=== PATIENT | male | born 1985 | race African-American/Black ===

== ENCOUNTER 2016-10-09 21:23 | Emergency (ER) | payer OTHER ==
[~2016-10-09] VITALS: Ht 175.3 cm; Wt 96.9 kg
[2016-10-09 21:26] VITALS: TEMP 36.7; Ht 175.3 cm; Wt 96.9 kg
[2016-10-09] MEDS ORDERED: XYLOCAINE 1%/SOD BICARB 20 ML VIAL INFIL ONE (21:39)
[2016-10-09 23:03] VITALS: BP 164/99; PULSE 72; O2SAT 100
--- NOTE | 2016-10-10 22:35 | EMERGENCY ROOM VISIT NOTE ---
ED Visit Note First contact with patient: 22:11 CHIEF COMPLAINT: Eyebrow laceration HISTORY OF PRESENT ILLNESS: This 31-year-old male patient presents to the emergency department after cutting the right eyebrow while playing basketball about one hour ago. The patient is under the care of [facility] and arrives accompanied by corrections officers. The bleeding has stopped. Denies weakness or numbness of the face. The patient rates the pain as dull and 5/10. The patient denies any other injuries. The patient's Tetanus shot is reportedly up to date. REVIEW OF SYSTEMS: A 6 system review of systems was completed with positives and pertinent negatives listed in the HPI. ALLERGIES: No known allergies MEDICATIONS: No chronic medication PMH: Otherwise healthy SOCIAL HISTORY: Currently incarcerated PHYSICAL EXAM: Vital Signs: Reviewed Nurse's notes, vital signs stable. GENERAL : Black male, in no acute distress, well-developed, well-nourished. SKIN: There is a curvilinear 3.0 cm long laceration on the mid aspect of the right eyebrow. The edges gape apart with traction. There is no foreign material in the wound and it looks clean. There is no significant bleeding. No deep structures such as tendons, bones, or significant blood vessels are seen in the base of the wound. Normal strength and movement of the eyebrow, face, and cheeks. No dental injuries.. Capillary refill less than 2 seconds. Normal sensation to light and sharp touch. EMERGENCY DEPARTMENT COURSE: I examined the patient. Verbal consent was obtained to perform the procedure. Using sterile technique the wound was cleansed with Betadine. The area was sterilely draped. 4 ml of 1% buffered lidocaine was used to anesthetize the laceration on the right eyebrow. Once the patient was anesthetized, the wound was copiously irrigated under pressure with sterile saline. The wound was explored and was as described above. The laceration was repaired using 6 simple interrupted 6-0 nylon sutures with the wound edges being well approximated. The patient tolerated the procedure well. Hemostasis was achieved. The area was cleaned with sterile saline and dressed with bacitracin ointment and bandage. The patient was discharged under the care of corrections officers with discharge instructions as below. Vital Signs Date Time Temp Pulse Resp B/P (MAP) Pulse Ox O2 Delivery O2 Flow Rate FiO2 10/09/16 23:03 72 18 164/99 100 10/09/16 21:26 36.7 72 18 164/99 100 Room Air Departure Information Impression Primary Impression: Laceration of right eyebrow Dispostion Home / Self-Care Condition GOOD Forms HOME CARE DOCUMENTATION FORM, IMPORTANT VISIT INFORMATION Patient Instructions My [facility], ED Laceration All, ED Scar Tips to Minimize Additional Instructions Keep wound clean and dry. Do not allow any crusting or dried blood to accumulate on sutures. If this occurs, use a mild soap/water on a Q-tip to clean the wound. Do not use Peroxide to clean the wound as this can delay healing Use an antibiotic ointment like Bacitracin for 3-4 days, then let wound dry. You may bathe and shower as normal, but DO NOT SOAK the wound. [facility], or in the ER. Return sooner for any signs of infection, increasing redness, swelling, or drainage.
== END 2016-10-09 23:04 | disposition home or self-care (01) ==
LOC: C.EDB 21:24 → C.EDD 23:04
DX: S01.111A Laceration without foreign body of right eyelid and periocular area, initial encounter (principal); X58.XXXA Exposure to other specified factors, initial encounter; Y93.67 Activity, basketball; Y92.149 Unspecified place in prison as the place of occurrence of the external cause